=== PATIENT | male | born 1980 | race African-American/Black ===

== ENCOUNTER 2021-09-16 07:34 | Emergency (ER) | payer OTHER ==
[2021-09-16 07:42] VITALS: BMI 24.0
[2021-09-16] MEDS ORDERED: ACETAMINOPHEN 325 MG TABLET (FP) PO ONE (07:51)
[2021-09-16] MEDS ORDERED: ACETAMINOPHEN 325 MG TABLET (FP) ONE (07:52)
[2021-09-16 09:37] VITALS: BP 134/88; PULSE 61; TEMP 98
== END 2021-09-16 09:37 | disposition home or self-care (01) ==
LOC: JER 07:34
DX: M70.22 Olecranon bursitis, left elbow (principal)
CPT/HCPCS: 73070-TC-RT-FY; 99283-25